=== PATIENT | male | born 1960 | race Caucasian/White ===

== ENCOUNTER → 2022-03-02 | Outpatient (CLI) | payer OTHER ==
--- NOTE | 2022-03-02 12:43 | RAD ---
Exam Date: 03/02/2022 9:45 AM MRI RIGHT LOWER EXTREMITY JOINT WITHOUT Indication: Reason: PRIMARY OSTEOARTHRITIS OF RIGHT KNEE / Spl. Instructions: RDZ AND NEPHEW PROTOC OL / History: . TECHNIQUE: MR imaging of the right knee was performed using Rdz and nephew protocol consisting of a single sagittal proton density weighted sequence. FINDINGS: Evaluation is limited due to only a single series provided. Anterior cruciate ligament, posterior cruciate ligament, quadriceps tendon, and patella tendon are in tact. Moderate degenerative changes are noted with prominent osteophytes. No definite acute fractur e is identified. There is likely complex tearing involving the medial and lateral menisci. There is a suprapatellar joint effusion. IMPRESSION: Limited evaluation of the described. Osteoarthritis of the right knee as noted. Electronically signed by: Shane Schafer MD (03/02/2022 12:41 PM) [id number]
--- NOTE | 2022-03-02 15:14 | RAD ---
XR BONE LENGTH History: Reason: VISIONAIRE PROTOCOL / Spl. Instructions: / History: Technique: AP view right lower extremity. Comparison: None. Findings: Advanced right knee degenerative changes within the medial compartment. No dislocation. No acute frac ture. Impression: 1. Advanced right knee DJD. Electronically signed by: Paresh Forde DO (03/02/2022 3:11 PM) [id number]
== END ==
LOC: MRI 09:25
PROVIDERS: ATTEND Orthopaedic Surgery
DX: M17.11 Unilateral primary osteoarthritis, right knee (principal); M25.461 Effusion, right knee; M25.761 Osteophyte, right knee
CPT/HCPCS: 73721; 77073